=== PATIENT | female | born 1960 | race Caucasian/White ===

== ENCOUNTER → 2017-12-30 | Outpatient (CLI) | payer BC ==
--- NOTE | 2017-12-30 10:33 | US ---
EXAMINATION TYPE: US thyroid st tissue head/neck DATE OF EXAM: 12/30/2017 COMPARISON: NONE CLINICAL HISTORY: E04.1 Thyroid Nodule. GLAND SIZE: Right Lobe: 6.4 x 3.2 x 4.0 cm Overall Parenchyma: heterogenous Left Lobe: 3.5 x 1.0 x 0.8 cm Overall Parenchyma: heterogeneous Isthmus Thickness: 0.2 cm NODULES RIGHT: # of nodules measured on right: 2 1. 1.9 X 1.6 x 1.9 cm echogenic solid nodule at the upper pole with well-defined margins; . This n odule is wider than tall and shows intranodular vascularity. Prior size: No previous 2. 3.5 X 3.0 x 3.5 cm echogenic solid nodule at the mid pole with well-defined margins; . This nodu le is wider than tall and shows intranodular vascularity. Prior size: No previous LEFT: # of nodules measured on left: 0 ISTHMUS: # of nodules measured in the isthmus: 0 Enlarged right lobe. Bilateral neck scanned, no evidence of lymphadenopathy. IMPRESSION: Two right-sided solid thyroid nodules the largest measuring up to 3.5 cm. Fine-needle aspiration is r ecommended for the larger mass is not previously performed.
== END | disposition home or self-care (01) ==
LOC: RADUSWWP 09:25
PROVIDERS: ATTEND Family Medicine
DX: E04.2 Nontoxic multinodular goiter (principal)
CPT/HCPCS: 76536

== ENCOUNTER 2018-01-17 10:47 | Day surgery (SDC) | payer BC ==
[2018-01-11 17:43] VITALS: BMI 24.4
[~2018-01-17 10:47] MED LIST: LACTATED RINGERS 1,000 ML IV SCH; LIDOCAINE 1% 20 ML VIAL (10MG/ML) FOR IV START INTRADERMA PRN; MIDAZOLAM 2 MG/2 ML VIAL IV PRN
[2018-01-17 11:15] VITALS: RESP 16; TEMP 97.7
[2018-01-17] MEDS ORDERED: fentaNYL (PF) 50 MCG/ML 2 ML AMP ONE (12:18)
[2018-01-17] MEDS ORDERED: PROPOFOL 10 MG/ML 20 ML VIAL IV ONE (12:18)
[2018-01-17] MEDS ORDERED: MIDAZOLAM 2 MG/2 ML VIAL ONE (12:18)
--- NOTE | 2018-01-17 12:48 | P.PCN ---
Date of Procedure: 01/17/18 Procedure(s) Performed: Procedure: Total colonoscopy Preoperative diagnosis: Screening for neoplasia. Postoperative diagnosis: Mild sigmoid diverticulosis with no evidence of acute diverticulitis, strictures, polyps or cancer. Preparation: HalfLytely prep. Sedation: Was provided by anesthesia. Brief clinical history: The patient is a 57-year-old female who is scheduled for this evaluation for screening for neoplasia age being her risk factor. She has no abdominal complaints, bleeding or anemia. This would be her first colonoscopy. Procedure: With the patient on her left lateral decubitus position and after informed consent and adequate sedation, the perianal area was inspected and it did not show any fissures or fistulas. There were no masses felt on digital rectal examination. The Olympus CFQ 160L video colonoscope was then inserted in the rectum in the usual fashion and advanced to the cecum. There were few small diverticular orifices seen scattered in the distal sigmoid but I saw no evidence of acute diverticulitis or strictures. No polyps or tumors were seen. I retroflexed the endoscope in the rectum before the endoscope was withdrawn. The patient tolerated the procedure well. Plan: The patient was reassured. Discussed dietary measures. She will follow- up with you as planned and I recommended repeat exam in 10 years.
[2018-01-17 13:16] VITALS: BP 104/71; PULSE 60
== END 2018-01-17 13:27 | disposition home or self-care (01) ==
LOC: ORWHC2ENDO 10:47
DX: Z12.11 Encounter for screening for malignant neoplasm of colon (principal); K57.30 Diverticulosis of large intestine without perforation or abscess without bleeding; E78.5 Hyperlipidemia, unspecified; Z88.0 Allergy status to penicillin; Z79.899 Other long term (current) drug therapy
CPT/HCPCS: J2250; J3010; J2704; G0121

== ENCOUNTER → 2018-05-18 | Outpatient (CLI) | payer BC ==
[2018-05-18 18:54] LABS: T4, Free (Free Thyroxine) 0.8 ng/dL (0.80-1.80)
== END | disposition home or self-care (01) ==
LOC: LABWHC1 12:16
PROVIDERS: ATTEND Internal Medicine Endocrinology, Diabetes & Metabolism
DX: E04.2 Nontoxic multinodular goiter (principal)
CPT/HCPCS: 36415; 84439; 84443

== ENCOUNTER → 2019-04-30 | Outpatient (CLI) | payer BC ==
--- NOTE | 2019-04-30 14:39 | XR ---
Left shoulder HISTORY: General humeral pain, radiculopathy 3 views of left shoulder Arthropathy is present at the acromion clavicular joint. Bone mineralization is reduced. Left lung ap ex as visualized is normal. No fracture or dislocation. IMPRESSION: Osteopenia.
--- NOTE | 2019-04-30 14:40 | XR ---
Cervical spine HISTORY: Neck pain, radiculopathy 5 views of the cervical spine There is multilevel facet arthropathy. Oblique images show no foraminal encroachment. Evaluation of t he left neural foramina is limited. Cervical vertebral bodies show preserved height. Bone mineralizat ion is mildly reduced. There is anterolisthesis grade 1 C3-4. Some mild loss of disc height present a t C4-5 and C5-6. IMPRESSION: Degenerative disc disease and facet arthropathy.
--- NOTE | 2019-04-30 14:41 | XR ---
Left humerus HISTORY: Pain Frontal lateral view of the humerus submitted on 2 images Bone mineralization is reduced. Alignment is maintained. No fracture or dislocation. IMPRESSION: Osteopenia.
== END | disposition home or self-care (01) ==
LOC: RADXRYALE 10:31
PROVIDERS: ATTEND Physician Assistant Medical
DX: M50.10 Cervical disc disorder with radiculopathy, unspecified cervical region (principal); M46.92 Unspecified inflammatory spondylopathy, cervical region; M85.812 Other specified disorders of bone density and structure, left shoulder
CPT/HCPCS: 72050

== ENCOUNTER → 2019-05-02 | Outpatient (CLI) | payer BC ==
--- NOTE | 2019-05-02 08:02 | BD ---
EXAMINATION TYPE: Axial Bone Density DATE OF EXAM: 05/02/2019 COMPARISON: NONE CLINICAL HISTORY: disorder of bone; post menopausal female. Height: 5' Weight: 125 FRAX RISK QUESTIONS: Secondary Osteoporosis: 3. Menopause before 45: y RISK FACTORS HISTORY OF: Postmenopausal woman: y MEDICATIONS: Thyroid Medications: Which medication: Synthroid How Lon year Additional Medications: cholesterol Additional History: EXAM MEASUREMENTS: Bone mineral densitometry was performed using the Factor[employer] System. Bone mineral density as measured about the Lumbar spine is: ----- L1-L4(G/cm2): 0.944 T Score Values are as follows: ----- L2: -2.1 ----- L3: -2.2 ----- L4: -1.9 ----- L1-L4: -2.0 Bone mineral density about the R hip (g/cm2): 0.802 Bone mineral density about the L hip (g/cm2): 0.692 T Score values are as follows: -----R Neck: -1.7 -----L Neck: -2.5 -----R Total: -1.5 -----L Total: -2.1 IMPRESSION: Osteopenia (T Score between -2.5 and -1). There is slightly increased risk of fracture and the patient may be considered for treatment. Re-Screen 2-5 years. NOTE: T-SCORE=SD OF THE YOUNG ADULT MEAN.
--- NOTE | 2019-05-02 13:19 | MM ---
Reason for exam: screening (asymptomatic). Last mammogram was performed 2 years and 2 months ago. History: Patient is postmenopausal. Physical Findings: A clinical breast exam by your physician is recommended on an annual basis and results should be correlated with mammographic findings. MG 3D Screening Mammo W/Cad Bilateral CC and MLO view(s) were taken. Prior study comparison: February 17, 2017, mammogram. February 16, 2016, mammogram. The breast tissue is heterogeneously dense. This may lower the sensitivity of mammography. No significant changes when compared with prior studies. ASSESSMENT: Benign, BI-RAD 2 RECOMMENDATION: Routine screening mammogram of both breasts in 1 year.
== END | disposition home or self-care (01) ==
LOC: RADMAMWWP 06:58
PROVIDERS: ATTEND Family Medicine
DX: Z12.31 Encounter for screening mammogram for malignant neoplasm of breast (principal); M85.80 Other specified disorders of bone density and structure, unspecified site
CPT/HCPCS: 77063; 77067; 77080

== ENCOUNTER 2021-08-21 06:42 | Day surgery (SDC) | payer OTHER ==
[2021-08-19 11:15] VITALS: BMI 22.8
[2021-08-21 07:16] VITALS: TEMP 97.8
[2021-08-21] MEDS: LACTATED RINGERS 1,000 ML IV SCH ×2 (07:16→07:35)
[2021-08-21] MEDS ORDERED: PROPOFOL 10 MG/ML 20 ML VIAL IV ONE (07:38)
[2021-08-21] MEDS ORDERED: LIDOCAINE 1% INJ 10MG/ML (20 ML MDV) ONE (07:38)
--- NOTE | 2021-08-21 08:08 | P.PCN ---
Date of Procedure: 08/21/21 Procedure(s) Performed: Brief history: Patient is a pleasant 61-year-old white female scheduled for an elective upper endoscopy as well as colonoscopy as a part of evaluation of epigastric pain for the last 1 month duration. She also has been having intermittent rectal bleeding. Procedure performed: Esophagogastroduodenoscopy with biopsy Colonoscopy with biopsy and snare polypectomy Preoperative diagnosis: Epigastric pain of 1 month duration and history of GERD Intermittent rectal bleeding Anesthesia: MAC Procedure: After informed consent was obtained from the patient was brought into the endoscopy unit and IV sedation was administered by anesthesia under continuous monitoring. Initially upper endoscopy was done. The Olympus GF 160 video endoscope was inserted inserted into the mouth and esophagus intubated without any difficulty and was gradually advanced into the stomach and duodenum and carefully examined. The bulb and second part of the duodenum appeared normal. The scope was then withdrawn into the stomach adequately insufflated with air and upon careful examination the antrum and mild gastritis and biopsies were done from this area. The body, cardia and fundus appeared normal. The scope was then withdrawn into the esophagus. The GE junction was located at 40 cm to the incisors. It appeared regular witha compression erythema consistent with LA grade a reflux esophagitis.est of the esophagus appeared normal. Patient tolerated the procedure well. At this time the patient continued to remain sedation. Initial digital rectal examination was normal. Olympus CF 160 video colonoscope was then inserted into the rectum and gradually advanced to the cecum without any difficulty. Careful examination was performed as the scope was gradually being withdrawn. The prep was excellent. The cecum, we normal. Ascending colon there was a 3 mm polyp removed by cold biopsy. In the transverse colon there was another 3 mm sessile polyp removed by cold biopsy. Rest of the ascending colon, transverse colon, descending colon, sigmoid colon appeared normal. in the mid rectum at 7 cm from the anal verge there was a 3 cm polypoid mass seen and initially part of the polyp was removed by snare polypectomy and immediately felt very hard and hence further polypectomy was not performed. Multiple biopsies were done. Retroflexion was performed in the rectum and no lesions were noted. Patient tolerated the procedure well. Impression: 1. Upper endoscopy revealed circumferential erythema the GE junction consistent with LA grade a reflux esophagitis and mild antral gastritis 2. Colonoscopy revealed 4 cm mid rectal polypoid mass at 7 cm from the anal verge status post partial snare polypectomy followed by multiple biopsies, 3 mm polyp in the transverse colon status post biopsy Recommendations: Findings of this examination were discussed with the patient as well as her family. She was advised to follow with the biopsy results. Increase the Pepcid 20 cm twice daily and follow antireflux measures. was in office in 5 days.
[2021-08-21 08:32] VITALS: BP 119/71; PULSE 68; RESP 16
== END 2021-08-21 09:05 | disposition home or self-care (01) ==
LOC: ORWHC2ENDO 06:42
PROVIDERS: ATTEND Internal Medicine Gastroenterology
DX: C20 Malignant neoplasm of rectum (principal); K63.5 Polyp of colon; K29.50 Unspecified chronic gastritis without bleeding; K31.A0 Gastric intestinal metaplasia, unspecified; E07.9 Disorder of thyroid, unspecified; K21.9 Gastro-esophageal reflux disease without esophagitis; Z79.899 Other long term (current) drug therapy; Z79.890 Hormone replacement therapy; Z88.0 Allergy status to penicillin; Z98.891 History of uterine scar from previous surgery; Z98.890 Other specified postprocedural states
CPT/HCPCS: 88305; 45380; 45385; 43239; J2001; J2704

== ENCOUNTER → 2021-08-28 | Outpatient (CLI) | payer OTHER ==
--- NOTE | 2021-09-01 10:34 | MM ---
Reason for exam: screening (asymptomatic). Last mammogram was performed 2 years and 4 months ago. History: Patient is postmenopausal and has history of other cancer at age 61. Physical Findings: A clinical breast exam by your physician is recommended on an annual basis and results should be correlated with mammographic findings. MG 3D Screening Mammo W/Cad Bilateral CC and MLO view(s) were taken. Prior study comparison: May 02, 2019, bilateral MG 3d screening mammo w/cad. February 17, 2017, mammogram. The breast tissue is heterogeneously dense. This may lower the sensitivity of mammography. There are benign appearing round calcifications bilaterally. There is no discrete abnormality. ASSESSMENT: Benign, BI-RAD 2 RECOMMENDATION: Routine screening mammogram of both breasts in 1 year.
== END | disposition home or self-care (01) ==
LOC: RADMAMWWP 09:13
PROVIDERS: ATTEND Family Medicine
DX: Z12.31 Encounter for screening mammogram for malignant neoplasm of breast (principal); Z78.0 Asymptomatic menopausal state
CPT/HCPCS: 77063; 77067

== ENCOUNTER 2021-09-21 06:21 | Day surgery (SDC) | payer OTHER ==
[2021-09-18 10:59] VITALS: BMI 23.0
--- NOTE | 2021-09-20 09:47 | P.GSHP ---
History of Present Illness H&P Date: 09/20/21 Chief Complaint: Rectal cancer 61-year-old female recently found to have a 3-4 center mass in the mid rectum by GI. Biopsies show invasive adenocarcinoma. Patient had MRI of the pelvis at [facility]. Patient is starting neoadjuvant chemoradiation. Presenting to the hospital for Port-A-Cath placement. Past Medical History Past Medical History: Cancer, Hyperlipidemia, Thyroid Disorder Additional Past Medical History / Comment(s): MIGRAINES, newly dx. rectal cancer. History of Any Multi-Drug Resistant Organisms: None Reported Past Surgical History: Section Additional Past Surgical History / Comment(s): RIGHT THYROIDECTOMY Past Anesthesia/Blood Transfusion Reactions: Postoperative Nausea & Vomiting (PONV) Smoking Status: Former smoker - Past Family History Father Family Medical History: Cancer Additional Family Medical History / Comment(s): Pancreatic Medications and Allergies Home Medications Medication Instructions Recorded Confirmed Type Atorvastatin [Lipitor] 20 mg PO DAILY 01/11/18 09/18/21 History Rizatriptan Benzoate [Maxalt] 10 mg PO DAILY PRN 01/11/18 09/18/21 History Ascorbic Acid [Vitamin C] 500 mg PO DAILY 08/19/21 09/18/21 History Fer/D3/Mag11/Zinc/Public Health Informatician/Abraham/Bor 1 each PO DAILY 08/19/21 09/18/21 History [Caltrate 600+D Plus Tablet] Famotidine [Pepcid] 20 mg PO BID 08/19/21 09/18/21 History Fish Oil/Dha/Epa [Fish Oil 1,200 1 each PO DAILY 08/19/21 09/18/21 History mg Fish Oil] Levothyroxine Sodium [Synthroid] 88 mcg PO DAILY 08/19/21 09/18/21 History Allergies Allergy/AdvReac Type Severity Reaction Status Date / Time Latex, Natural Rubber Allergy Rash/Hives Verified 09/18/21 10:50 Penicillins Allergy Rash/Hives Verified 09/18/21 10:50 Surgical - Exam Physical exam: General: Well-developed, well-nourished HEENT: Normocephalic, sclerae nonicteric Abdomen: Nontender, nondistended Extremities: No edema Neuro: Alert and oriented Assessment and Plan (1) Rectal cancer Narrative/Plan: Will proceed with Port-A-Cath placement. Risks of bleeding, infection, DVT, pneumothorax, catheter malfunction, anesthesia related complications were discussed. The patient understands and wishes to proceed. Status: Acute Code(s): C20 - MALIGNANT NEOPLASM OF RECTUM SNOMED Code(s): 835213199
[~2021-09-21 06:21] MED LIST changes: +ACETAMINOPHEN TAB 500 MG TAB PO PRN; +HEPARIN SODIUM,PORCINE/PF 5,000 UNIT/0.5 ML SYRINGE SQ PRN; -LACTATED RINGERS 1,000 ML IV SCH; -LIDOCAINE 1% 20 ML VIAL (10MG/ML) FOR IV START INTRADERMA PRN; -MIDAZOLAM 2 MG/2 ML VIAL IV PRN; +Pre Op ABX Message 1 EACH MISC MISCELLANE ONE
[2021-09-21] MEDS ORDERED: ONDANSETRON 4 MG/2 ML VIAL ONE (07:15)
[2021-09-21] MEDS ORDERED: DEXAMETHASONE SOD PHOSPHATE 4 MG/ML 1 ML VIAL IV ONE (07:29)
[2021-09-21] MEDS ORDERED: LACTATED RINGERS 1,000 ML IV ONE (07:29)
[2021-09-21] MEDS ORDERED: KETOROLAC 15 MG/ML 1 ML VIAL ONE (07:43)
[2021-09-21] MEDS ORDERED: MIDAZOLAM 2 MG/2 ML VIAL ONE (07:43)
[2021-09-21] MEDS ORDERED: LIDOCAINE 1% INJ 10MG/ML (20 ML MDV) ONE (07:43)
[2021-09-21] MEDS ORDERED: PROPOFOL 10 MG/ML 20 ML VIAL IV ONE (07:43)
[2021-09-21] MEDS ORDERED: SODIUM CHLORIDE 0.9% 50 ML with ceFAZolin 1,000 MG IV ONE ×2 (07:45)
[2021-09-21] MEDS ORDERED: LIDOCAINE 1% INJ 10MG/ML (20 ML MDV) SQ ONE ×2 (08:10)
[2021-09-21 08:48] VITALS: RESP 16; TEMP 97
[2021-09-21] MEDS ORDERED: NALOXONE 0.4 MG/ML 1 ML VIAL IV PRN (08:59)
[2021-09-21] MEDS ORDERED: traMADol 50 MG TAB PO PRN (08:59)
--- NOTE | 2021-09-21 09:04 | P.OP ---
Date of Procedure: 09/21/21 Procedure(s) Performed: PREOPERATIVE DIAGNOSIS: Rectal cancer POSTOPERATIVE DIAGNOSIS: Same PROCEDURE: Port-A-Cath placement with fluoroscopic and ultrasound guidance SURGEON: Carrie EBL: Minimal ANESTHESIA: Sedation COMPLICATIONS: None OPERATIVE PROCEDURE: Patient was brought and placed on the operative table in the supine position. The patient was sedated per anesthesia that time. The chest and neck were prepped and draped in usual sterile fashion. The ultrasound probe was used to identify the location of the right internal jugular vein. The skin was localized with lidocaine. The Seldinger needle was advanced into the IJ under ultrasound guidance. The wire was advanced through the needle under fluoroscopic guidance into the superior vena cava. A port pocket was created in the right infraclavicular location. The catheter was tunneled from the wire entrance site to the port pocket. The port was then connected to the catheter. The dilator introducer was threaded over the guidewire. The guidewire and dilator were then removed. The catheter was advanced through the introducer and introducer was then removed. The tip was seen to be in the right atrial junction via fluoroscopy. A picture of the radiograph showing the tip at the radial digital junction was taken. Port was flushed with both saline and a Hep- Lock solution. There was good flow both in and out of the port. The port was sutured in underlying tissues using 3-0 silk sutures. The subcutaneous tissues were reapproximated using 3-0 Vicryl sutures and the skin at both locations using 4-0 Monocryl sutures. Skin glue and sterile dressings then applied. DISPOSITION: Stable to recovery room
[2021-09-21 09:59] VITALS: BP 127/81; PULSE 64
--- NOTE | 2021-09-21 12:35 | FL ---
Fluoroscopy HISTORY: Port-A-Cath insertion 8 seconds fluoroscopy time supplied to the referring clinician. 3 intraoperative C-arm images docume nt the procedure. See dictated report from general surgery.
== END 2021-09-21 10:16 | disposition home or self-care (01) ==
LOC: OR 06:21
PROVIDERS: ATTEND Surgery
DX: C20 Malignant neoplasm of rectum (principal); E07.9 Disorder of thyroid, unspecified; G43.909 Migraine, unspecified, not intractable, without status migrainosus; K21.9 Gastro-esophageal reflux disease without esophagitis; Z79.899 Other long term (current) drug therapy; Z88.0 Allergy status to penicillin; Z91.040 Latex allergy status; Z87.891 Personal history of nicotine dependence
CPT/HCPCS: 36556; 77001; C1788; J2250; J1100; J2405; J0690; J2001; J1642; J1885; J2704; J1644

== ENCOUNTER → 2022-09-10 | Outpatient (CLI) | payer OTHER ==
--- NOTE | 2022-09-13 16:32 | MM ---
Reason for Exam: Screening (asymptomatic). Last mammogram was performed 1 year(s) and 1 month(s) ago. Patient History: Menarche at age 14. First Full-Term at age 25. Postmenopausal. Other cancer, age 61. Risk Values: Kala 5 year model risk: 1.6%. NCI Lifetime model risk: 6.8%. Prior Study Comparison: 02/17/2017 Screening Mammogram, Unknown. 05/02/2019 Bilateral Screening Mammogram, [facility]. 08/28/2021 Bilateral Screening Mammogram, [facility]. Tissue Density: There are scattered fibroglandular densities. Findings: Analyzed By CAD. Pattern appears stable. Few scattered benign punctate calcifications are present. No significant interval change is evident. No suspicious groups of microcalcifications, spiculated or lobular masses, architectural distortion or other secondary signs of malignancy are mammographically apparent. Overall Assessment: Benign, BI-RAD 2 Management: Screening Mammogram of both breasts in 1 year. A negative mammogram report should not preclude additional follow up of suspicious palpable abnormalities. Patient should continue monthly self breast exam. A clinical breast exam by your physician is recommended on an annual basis and results should be correlated with mammographic findings. Electronically signed and approved by: Johnathan Lincoln D.O. Radiologis
== END | disposition home or self-care (01) ==
LOC: RADMAMWWP 09:55
PROVIDERS: ATTEND Family Medicine
DX: Z12.31 Encounter for screening mammogram for malignant neoplasm of breast (principal); Z78.0 Asymptomatic menopausal state
CPT/HCPCS: 77063; 77067

== ENCOUNTER → 2022-09-17 | Day surgery (SDC) | payer OTHER ==
[2022-09-14 12:01] VITALS: BMI 22.8
[~2022-09-17] MED LIST changes: -ACETAMINOPHEN TAB 500 MG TAB PO PRN; -HEPARIN SODIUM,PORCINE/PF 5,000 UNIT/0.5 ML SYRINGE SQ PRN; +LACTATED RINGERS 1,000 ML IV SCH; +LIDOCAINE 1% (10MG/ML) FOR IV START INTRADERMA PRN; +PROPOFOL 10 MG/ML 20 ML VIAL IV ONE; -Pre Op ABX Message 1 EACH MISC MISCELLANE ONE
[2022-09-17 12:55] VITALS: RESP 16; TEMP 98
--- NOTE | 2022-09-17 13:52 | P.PCN ---
Date of Procedure: 09/17/22 Procedure(s) Performed: BRIEF HISTORY: Patient is a 62-year-old pleasant 62 scheduled for an elective sigmoidoscopy as the part of surveillance of rectal tumor diagnosed in August 2021. He is post chemotherapy as well as radiation therapy that ended in March of last year. She did have a sigmoidoscopy by Dr. Bolton at [facility] and according to the patient there was no residual tumor. She did not have any surgical resection. she is scheduled for repeat surveillance of her today. PROCEDURE PERFORMED: Flexible sigmoidoscopy PREOPERATIVE DIAGNOSIS: Follow-up rectal cancer diagnosed in August 2021, status post radiation and chemotherapy 8 months ago IV sedation per Anesthesia. PROCEDURE: After informed consent was obtained, the patient, was brought into the endoscopy unit. IV sedation was administered by Anesthesia under continuous monitoring. Digital rectal examination was normal. Initially the Olympus CF-160 flexible video colonoscope was then inserted in the rectum, gradually advanced into the splenic flexure. The prep was excellent. Mucosa of the descending colon, sigmoid colon, and rectum appeared normal. Retroflexion was performed in the rectum and no lesions were seen. The patient tolerated the procedure well. IMPRESSION: Normal-appearing colon from rectum to splenic flexure with no evidence of colorectal neoplasia RECOMMENDATIONS: Findings of this examination were discussed with the patient as well as her family. She was advised to have a repeat sigmoidoscopy in 6 months to one year.
[2022-09-17 14:14] VITALS: BP 119/72; PULSE 76
== END ==
LOC: ORWHC2ENDO 12:37
PROVIDERS: ATTEND Internal Medicine Gastroenterology
DX: C20 Malignant neoplasm of rectum (principal); Z92.21 Personal history of antineoplastic chemotherapy; Z92.3 Personal history of irradiation; E78.5 Hyperlipidemia, unspecified; E03.9 Hypothyroidism, unspecified; Z79.890 Hormone replacement therapy; G43.909 Migraine, unspecified, not intractable, without status migrainosus; K21.9 Gastro-esophageal reflux disease without esophagitis; Z79.1 Long term (current) use of non-steroidal anti-inflammatories (NSAID); Z79.899 Other long term (current) drug therapy; Z87.891 Personal history of nicotine dependence; Z88.0 Allergy status to penicillin; Z91.040 Latex allergy status
CPT/HCPCS: 45330; J2704

== ENCOUNTER → 2022-12-14 | Outpatient (CLI) | payer OTHER | END | disposition home or self-care (01) | LOC: LABWHC1 09:09 | PROVIDERS: ATTEND Internal Medicine Endocrinology, Diabetes & Metabolism | DX: E04.2 Nontoxic multinodular goiter (principal); R53.83 Other fatigue | CPT/HCPCS: 36415; 82024 ==

== ENCOUNTER 2023-09-30 12:15 | Day surgery (SDC) | payer OTHER ==
[~2023-09-30 12:15] MED LIST changes: -LACTATED RINGERS 1,000 ML IV SCH; -PROPOFOL 10 MG/ML 20 ML VIAL IV ONE
[2023-09-30] MEDS: LACTATED RINGERS 1,000 ML IV SCH (13:40)
[2023-09-30 14:14] VITALS: TEMP 97.8
[2023-09-30] MEDS ORDERED: PROPOFOL 10 MG/ML 20 ML VIAL IV ONE (14:17)
--- NOTE | 2023-09-30 14:48 | P.PCN ---
Date of Procedure: 09/30/23 Procedure(s) Performed: BRIEF HISTORY: Patient is a 63-year-old pleasant white female scheduled for an elective colonoscopy as a part of follow-up of rectal cancer diagnosed in August 2021. She is s/p radiation and chemotherapy and since then has been in clinical back remission. Last sigmoidoscopy was in September 2022 that did not show any evidence of recurrence. PROCEDURE PERFORMED: Colonoscopy. PREOPERATIVE DIAGNOSIS: Follow-up rectal cancer diagnosed in August 2021 s/p radiation and chemotherapy. IV sedation per Anesthesia. PROCEDURE: After informed consent was obtained, the patient, was brought into the endoscopy unit. IV sedation was administered by Anesthesia under continuous monitoring. Digital rectal examination was normal. Initially the Olympus CF-160 flexible video colonoscope was then inserted in the rectum, gradually advanced into the cecum without any difficulty. Careful examination was performed as the scope was gradually being withdrawn. Ileocecal valve and the appendiceal orifice were visualized and appeared normal. Prep was excellent. Mucosa of the cecum, ascending colon, transverse colon, descending colon, sigmoid colon, and rectum appeared normal. Katter sigmoid diverticulosis retroflexion was performed in the rectum and no lesions were seen. The patient tolerated the procedure well. IMPRESSION: Normal-appearing colon from rectum to cecum no evidence of colorectal neoplasia Scattered sigmoid diverticulosis. RECOMMENDATIONS: Findings of this examination were discussed with the patient as well as her family. She was advised to have a sigmoidoscopy in 1-2 yrs.
[2023-09-30 15:42] VITALS: BP 107/70; PULSE 68; RESP 16
== END 2023-09-30 15:36 | disposition home or self-care (01) ==
LOC: ORWHC2ENDO 12:15
PROVIDERS: ATTEND Internal Medicine Gastroenterology
DX: Z12.11 Encounter for screening for malignant neoplasm of colon (principal); K57.30 Diverticulosis of large intestine without perforation or abscess without bleeding; E78.5 Hyperlipidemia, unspecified; G43.909 Migraine, unspecified, not intractable, without status migrainosus; K21.9 Gastro-esophageal reflux disease without esophagitis; Z87.891 Personal history of nicotine dependence; Z79.899 Other long term (current) drug therapy; Z85.048 Personal history of other malignant neoplasm of rectum, rectosigmoid junction, and anus; Z92.21 Personal history of antineoplastic chemotherapy; Z92.3 Personal history of irradiation; Z88.0 Allergy status to penicillin; Z91.040 Latex allergy status
CPT/HCPCS: 45378; J2704

== ENCOUNTER → 2023-10-05 | Outpatient (CLI) | payer OTHER ==
--- NOTE | 2023-10-05 10:29 | US ---
EXAMINATION TYPE: US thyroid st tissue head/neck DATE OF EXAM: 10/05/2023 COMPARISON: NONE CLINICAL INDICATION: Female, 63 years old with history of E04.2 NONTOXIC MULTINODULAR GOITER; right t hyroid removed 2017 GLAND SIZE: Right Lobe: Surgically absent Left Lobe: 2.6 x .9 x .6 cm Overall Parenchyma: heterogeneous Isthmus Thickness: 0.2 cm NODULES RIGHT, surgically absent LEFT: # of nodules measured on left: 0 ISTHMUS: # of nodules measured in the isthmus: 0 Bilateral neck scanned, no evidence of lymphadenopathy. IMPRESSION: No left thyroid nodules. Heterogenous thyroid gland correlate for thyroiditis.
== END | disposition home or self-care (01) ==
LOC: RADUSWWP 09:37
PROVIDERS: ATTEND Internal Medicine Endocrinology, Diabetes & Metabolism
DX: E04.2 Nontoxic multinodular goiter (principal); Z90.89 Acquired absence of other organs
CPT/HCPCS: 76536

== ENCOUNTER → 2023-10-05 | Outpatient (CLI) | payer OTHER ==
--- NOTE | 2023-10-05 21:45 | MM ---
Reason for Exam: Screening (asymptomatic). Last mammogram was performed 1 year(s) and 1 month(s) ago. Patient History: Menarche at age 14. First Full-Term at age 25. Postmenopausal. Other cancer, age 61. Risk Values: Kala 5 year model risk: 1.6%. NCI Lifetime model risk: 6.6%. Prior Study Comparison: 05/02/2019 Bilateral Screening Mammogram, [facility]. 08/28/2021 Bilateral Screening Mammogram, [facility]. 09/10/2022 Bilateral MG 3D screening mammo w/cad, [facility]. Tissue Density: There are scattered areas of fibroglandular density. Findings: Analyzed By CAD. The pattern is symmetrical. No significant interval change is evident. No suspicious groups of microcalcifications, spiculated or lobular masses, architectural distortion or other secondary signs of malignancy are mammographically apparent. Overall Assessment: Benign, BI-RAD 2 Management: Screening Mammogram of both breasts in 1 year. A negative mammogram report should not preclude additional follow up of suspicious palpable abnormalities. Patient should continue monthly self breast exam. A clinical breast exam by your physician is recommended on an annual basis and results should be correlated with mammographic findings. Note on Kala scores and lifetime risk: 1. A Kala score greater than 3% is considered moderate risk. If this is the case, consider specialist referral to assess eligibility for a risk reducing agent. 2. If overall lifetime risk for the development of breast cancer is 20% or higher, the patient may qualify for future screening with alternating mammogram and breast MRI. Electronically signed and approved by: Johnathan Lincoln D.O. Radiologis
== END | disposition home or self-care (01) ==
LOC: RADMAMWWP 09:38
PROVIDERS: ATTEND Family Medicine
DX: Z12.31 Encounter for screening mammogram for malignant neoplasm of breast (principal); Z78.0 Asymptomatic menopausal state
CPT/HCPCS: 77063; 77067

== ENCOUNTER 2024-09-26 09:32 | Day surgery (SDC) | payer MEDICARE, OTHER ==
[~2024-09-26 09:32] MED LIST changes: +LACTATED RINGERS 1,000 ML IV SCH
[2024-09-26] MEDS: IV FLUID CONTINUATION 1,000 ML IV ONE (10:00)
[2024-09-26 10:15] VITALS: RESP 16; TEMP 97.6
[2024-09-26] MEDS ORDERED: PROPOFOL 10 MG/ML 20 ML VIAL IV ONE (11:22)
--- NOTE | 2024-09-26 11:33 | P.PCN ---
Date of Procedure: 09/26/24 Procedure(s) Performed: BRIEF HISTORY: Patient is a 64-year-old pleasant white female scheduled for an elective colonoscopy as a part of this evidence of prior history of rectal cancer diagnosed in September 2021. She is status post chemoradiation and has been in clinical remission. Last colonoscopy was a year ago and was unremarkable. PROCEDURE PERFORMED: Flexible sigmoidoscopy. PREOPERATIVE DIAGNOSIS: Surveillance of rectal cancer diagnosed in September 2021. IV sedation per Anesthesia. PROCEDURE: After informed consent was obtained, the patient, was brought into the endoscopy unit. IV sedation was administered by Anesthesia under continuous monitoring. Digital rectal examination was normal. Initially the Olympus CF-160 flexible video colonoscope was then inserted in the rectum, gradually advanced into the splenic flexure. Careful examination was performed. Prep was excellent. Mucosa of the, descending colon, sigmoid colon, and rectum appeared normal. Retroflexion was performed in the rectum and no lesions were seen. Scattered sigmoid diverticulosis. The patient tolerated the procedure well. IMPRESSION: Normal-appearing colon from rectum to splenic flexure with no evidence of colorectal neoplasia Scattered sigmoid diverticulosis RECOMMENDATIONS: Findings of this examination were discussed with the patient as well as her family. She was advised to have a repeat sigmoidoscopy in 1 year..
[2024-09-26 11:54] VITALS: BP 118/73; PULSE 72
== END 2024-09-26 12:08 | disposition home or self-care (01) ==
LOC: ORWHC2ENDO 09:32
PROVIDERS: ATTEND Internal Medicine Gastroenterology
DX: Z12.12 Encounter for screening for malignant neoplasm of rectum (principal); K57.30 Diverticulosis of large intestine without perforation or abscess without bleeding; E78.5 Hyperlipidemia, unspecified; E07.9 Disorder of thyroid, unspecified; G43.909 Migraine, unspecified, not intractable, without status migrainosus; K21.9 Gastro-esophageal reflux disease without esophagitis; Z91.89 Other specified personal risk factors, not elsewhere classified; Z79.890 Hormone replacement therapy; Z79.899 Other long term (current) drug therapy; Z85.048 Personal history of other malignant neoplasm of rectum, rectosigmoid junction, and anus; Z92.21 Personal history of antineoplastic chemotherapy; Z92.3 Personal history of irradiation; Z88.0 Allergy status to penicillin; Z91.040 Latex allergy status
CPT/HCPCS: 45330; J2704

== ENCOUNTER → 2024-10-05 | Outpatient (CLI) | payer MEDICARE ==
--- NOTE | 2024-10-05 11:37 | MM ---
Reason for Exam: Screening (asymptomatic). Last screening mammogram was performed 12 month(s) ago. Patient History: Menarche at age 14. First Full-Term at age 25. Postmenopausal. Other cancer, age 61. Risk Values: Kala 5 year model risk: 1.7%. NCI Lifetime model risk: 6.3%. Prior Study Comparison: 08/28/2021 Bilateral Screening Mammogram, [facility]. 09/10/2022 Bilateral MG 3D screening mammo w/cad, [facility]. 10/05/2023 Bilateral MG 3D screening mammo w/cad, [facility]. Tissue Density: The breasts are heterogeneously dense, which may obscure small masses. Findings: Analyzed By CAD. There are a few scattered tiny benign apparent round calcifications bilaterally redemonstrated. There is no suspicious group of microcalcifications or new suspicious mass in either breast. Overall Assessment: Benign, BI-RAD 2 Management: Screening Mammogram of both breasts in 1 year. . Patient should continue monthly self-breast exams. A clinical breast exam by your physician is recommended on an annual basis. This exam should not preclude additional follow-up of suspicious palpable abnormalities. Note on Kala scores and lifetime risk: 1. A Kala score greater than 3% is considered moderate risk. If this is the case, consider specialist referral to assess eligibility for a risk reducing agent. 2. If overall lifetime risk for the development of breast cancer is 20% or higher, the patient may qualify for future screening with alternating mammogram and breast MRI. [facility], , 10/05/2024 11:34 AM. Electronically signed and approved by: Cliff Cooper M.D.
== END | disposition home or self-care (01) ==
LOC: RADMAMWWP 10:33
PROVIDERS: ATTEND Family Medicine
DX: Z12.31 Encounter for screening mammogram for malignant neoplasm of breast (principal); R92.333 Mammographic heterogeneous density, bilateral breasts; Z78.0 Asymptomatic menopausal state
CPT/HCPCS: 77063; 77067